=== PATIENT | female | born 1975 | race Caucasian/White ===

== ENCOUNTER 2016-10-24 23:02 | Emergency (ER) | payer BC ==
--- NOTE | 2016-10-25 06:57 | ER ---
ADMIT: 10/24/2016 RM/LOC: ER [facility] MR#: [id number] [facility] [address] [place], [place] [id number] [place]Kal, GAYE [address] [place] [address] Emergency Room Report SEX: F AGE: 41 : 1975 DATE: 10/24/2016 TIME: 2302 hours. Please refer to my T-sheet for complete H and P. Briefly, the patient is a 41-year-old, who was upset at work. Started at about 4 o'clock today. She has not had epigastric pain ever since. It all started with upsetness at work. No vomiting, but very frustrated. PHYSICAL EXAMINATION: VITAL SIGNS: Stable. HEENT: Grossly normal. ABDOMEN: Mildly tender epigastric. EMERGENCY DEPARTMENT COURSE: I gave her a GI cocktail and it seemed to help. She did not want anything for anxiety. I did an EKG which was sinus rhythm, rate 74, no changes. She was ready for discharge. ASSESSMENT: 1. Anxiety. 2. Abdominal pain. PLAN: Zantac. Return if worse. Follow up with Babatunde. Josesito Reynolds MD/ shirin JOB #: [id number] CC: Josesito Reynolds MD, Attending Physician
== END 2016-10-25 00:50 | disposition home or self-care (01) ==
LOC: ER 23:02
DX: R10.13 Epigastric pain (principal); F41.9 Anxiety disorder, unspecified; F32.9 Major depressive disorder, single episode, unspecified